=== PATIENT | female | born 2000 | race Caucasian/White ===

== ENCOUNTER 2018-07-31 11:49 | Emergency (ER) | payer OTHER, SELFPAY ==
[2018-07-31 11:52] VITALS: BP 154/78; PULSE 64; RESP 16; TEMP 36.6; O2SAT 99; BMI 26.4
--- NOTE | 2018-07-31 12:24 | ED.DCSUM_ITS ---
- ER Visit Summary Date of Service: 07/31/18 Chief Complaint: Cyst History of Present Illness: The patient is a 18 F with history of pilonidal cyst presents with similar symptoms for the past 3 days. No fever or chills. Physical Examination: Otherwise normal exam, there is about a 2 cm pilonidal cyst no surrounding cellulitis Emergency Department Course and Treatment: 1% lidocaine, [place], #11 blade wound ellipsed quite a bit of pus was expectorated patient tolerated procedure well She will be discharged with antibiotics Discharge stable condition Impression: [Pilonidal cyst, infected] This note was generated with [employer] dictation software. It may contain incorrect words, spelling, and punctuation that were not noted in review of the chart prior to signing ED Disposition - Plan for ED Patient: Disposition: Home or Assisted Living Instructions: ED Abscess IandD Prescriptions: Hydrocodone Bitart/Apap 5-325 [[place] 5MG-325MG] 1 tab PO Q4H PRN PRN 2 Days #10 tab PRN Reason: Pain Clindamycin [Cleocin] 300 mg PO TID #60 cap Referrals: [facility] Doctor,Out of [Primary Care Provider] -
[2018-07-31 12:45] VITALS: PULSE 66; RESP 17; O2SAT 100
== END 2018-07-31 12:45 | disposition home or self-care (01) ==
PROVIDERS: Emergency Provider Emergency Medicine
DX: L05.01 Pilonidal cyst with abscess (principal)
CPT/HCPCS: 10080; 99282